=== PATIENT | female | born 1950 | race Caucasian/White ===

== ENCOUNTER 2018-04-02 13:51 | Outpatient (CLI) | payer MEDICARE, OTHER, SELFPAY ==
--- NOTE | 2018-04-02 13:58 | MERGE_ITS ---
*[facility]* *[facility]* [address] [place] [address] Date of study: 04/02/2018 Transthoracic Echocardiography M-mode, complete 2D, complete spectral Doppler, and color Doppler *STUDY CONCLUSIONS* Summary: 1. Left ventricle: The cavity size was normal. Wall thickness was normal. Systolic function was normal. The estimated ejection fraction was 55-60%. Wall motion was normal; there were no regional wall motion abnormalities. 2. Mitral valve: Moderate diffuse thickening of the anterior leaflet and posterior leaflet, consistent with myxomatous proliferation. Mild prolapse, involving the anterior leaflet. Mild systolic bowing without prolapse, involving the posterior leaflet. There was moderate regurgitation directed eccentrically and posteriorly. 3. Right ventricle: The cavity size was normal. Wall thickness was normal. Systolic function was normal. 4. Pulmonary arteries: Pulmonary systolic pressure was mildly increased. PA peak pressure: 36mm Hg (S). 5. Pericardium, extracardiac: A small pericardial effusion was identified along the right ventricular free wall. There was no evidence of hemodynamic compromise. *PATIENT PRESENTATION* Height: 165.1cm ((65in) ) S/D Pressure: 105 / 62 Weight: 53.6kg ((117.9lb) ) BSA: 1.56m^2 Test start time: 02:10 PM. Test stop time: 03:00 PM. ORDERING Anna Walter REFERRING Anna Walter PERFORMING Unknown PERFORMING [facility]GNOS REPORT DEVELOPER RT Radha PaulR)(SANDRA)LINDA *PROCEDURE DATA* Procedure information: The patient was identified by two identifiers. This study was interpreted by [facility]. Pertinent images and digital data are archived for permanent storage and are available for subsequent review. No prior study was available for comparison. Study status: Routine. Transthoracic echocardiography. M-mode, complete 2D, complete spectral Doppler, and color Doppler. A Transthoracic Echocardiogram was performed. Scanning was performed from the parasternal, apical, subcostal, and suprasternal notch acoustic windows. Images were obtained using an [id number] cardiac ultrasound machine. Image quality was adequate. Study completion: The patient tolerated the procedure well. History: PMH: Syncope and collapse *CARDIAC ANATOMY* Left ventricle: The cavity size was normal. Wall thickness was normal. Systolic function was normal. The estimated ejection fraction was 55-60%. Wall motion was normal; there were no regional wall motion abnormalities. Aortic valve: Trileaflet; normal thickness leaflets. Mobility was not restricted. Doppler: Transvalvular velocity was within the normal range. There was no stenosis. There was trivial regurgitation. VTI ratio of LVOT to aortic valve: 0.74. Valve area (VTI): 2.4cm^2. Indexed valve area (VTI): 1.6cm^2/m^2. Peak velocity ratio of LVOT to aortic valve: 0.7. Valve area (Vmax): 2.3cm^2. Indexed valve area (Vmax): 1.5cm^2/m^2. Mean velocity ratio of LVOT to aortic valve: 0.79. Valve area (Vmean): 2.6cm^2. Indexed valve area (Vmean): 1.7cm^2/m^2. Mean gradient (S): 2.7mm Hg. Peak gradient (S): 5.6mm Hg. Aorta: Aortic root: The aortic root was normal in size. Mitral valve: Moderate diffuse thickening of the anterior leaflet and posterior leaflet, consistent with myxomatous proliferation. Mobility was not restricted. Mild prolapse, involving the anterior leaflet. Mild systolic bowing without prolapse, involving the posterior leaflet. Doppler: Transvalvular velocity was within the normal range. There was no evidence for stenosis. There was moderate regurgitation directed eccentrically and posteriorly. Valve area by pressure half-time: 2.4cm^2. Indexed valve area by pressure half-time: 1.6cm^2/m^2. Left atrium: The atrium was at the upper limits of normal in size. Right ventricle: The cavity size was normal. Wall thickness was normal. Systolic function was normal. Pulmonic valve: Poorly visualized. Doppler: Transvalvular velocity was within the normal range. There was no evidence for stenosis. There was trivial regurgitation. Peak gradient (S): 3.6mm Hg. Tricuspid valve: Structurally normal valve. Doppler: Transvalvular velocity was within the normal range. There was no evidence for stenosis. There was trivial regurgitation. Pulmonary artery: Poorly visualized. Pulmonary systolic pressure was mildly increased. Right atrium: The atrium was normal in size. Pericardium: A small pericardial effusion was identified along the right ventricular free wall. There was no evidence of hemodynamic compromise. Systemic veins: Inferior vena cava: Well visualized. The vessel was patent and normal in size. The respirophasic diameter changes were in the normal range (greater than or equal to 50%), consistent with normal central venous pressure. Baseline ECG: Normal sinus rhythm. Measurements Left ventricle Value Reference LV ID, ED, PLAX 4.6 cm 3.5 - 6.0 LV ID, ES, PLAX 3.2 cm 2.1 - 4.0 LV PW thickness, ED, PLAX 1.1 cm LV end-diastolic volume, 1-p A2C 99 ml LV ejection fraction, 1-p A2C 57 % LV end-diastolic volume, 1-p A4C 71 ml LV ejection fraction, 1-p A4C 58 % LV e', lateral 0.088 m/sec LV E/e', lateral 7 LV e', medial 0.064 m/sec LV E/e', medial 10 LV e', average 0.076 m/sec LV E/e', average 8 Ventricular septum Value Reference IVS thickness, ED, PLAX 1.0 cm LVOT Value Reference LVOT ID, A-P 2.0 cm LVOT area 3.3 cm^2 LVOT peak velocity, S 0.83 m/sec LVOT mean velocity, S 0.61 m/sec LVOT VTI, S 17.7 cm LVOT peak gradient, S 2.7 mm Hg LVOT mean gradient, S 1.6 mm Hg Stroke volume (SV), LVOT DP 58 ml Stroke index (SV/bsa), LVOT DP 37 ml/m^2 Aortic valve Value Reference Aortic valve peak velocity, S 1.2 m/sec Aortic valve mean velocity, S 0.77 m/sec Aortic valve VTI, S 24.0 cm Aortic mean gradient, S 2.7 mm Hg Aortic peak gradient, S 5.6 mm Hg VTI ratio, LVOT/AV 0.74 Aortic valve area, VTI 2.4 cm^2 Velocity ratio, peak, LVOT/AV 0.7 Aortic valve area, peak velocity 2.3 cm^2 Velocity ratio, mean, LVOT/AV 0.79 Aortic valve area, mean velocity 2.6 cm^2 Aortic valve area/bsa, mean velocity 1.7 cm^2/m^2 Aorta Value Reference Aortic root ID, ED 2.9 cm Ascending aorta ID, A-P, S 2.7 cm RVOT Value Reference RVOT VTI, S 18.4 cm Left atrium Value Reference LA ID, A-P, ES 3.1 cm LA ID/bsa, A-P 2.0 cm/m^2 <=2.2 LA area, ES, A4C 18.3 cm^2 8.8 - 23.4 LA area, ES, A2C 18 cm^2 LA volume/bsa, ES, 1-p A4C 36 ml/m^2 LA volume, ES, 2-p 48 ml LA volume/bsa, ES, 2-p 31 ml/m^2 LA/aortic root ratio 1.09 Mitral valve Value Reference Mitral E-wave peak velocity 0.62 m/sec Mitral A-wave peak velocity 0.6 m/sec Mitral deceleration time (H) 311 ms 150 - 230 Mitral pressure half-time 90 ms Mitral E/A ratio, peak 1.02 Mitral valve area, PHT, DP 2.4 cm^2 Mitral peak LV-LA gradient, S 132 mm Hg Mitral maximal regurg velocity, PISA 5.74 m/sec Mitral regurg VTI, PISA 210.9 cm Pulmonary veins Value Reference Pulmonary vein peak velocity, S 0.52 m/sec Pulmonary vein peak velocity, D 0.49 m/sec Pulmonary vein velocity ratio, peak, 1.06 S/D Pulmonary vein A-wave reversal peak 0.38 m/sec velocity Pulmonary vein A-wave reversal 135 ms duration Pulmonary arteries Value Reference PA pressure, S, DP (H) 36 mm Hg <=30 Tricuspid valve Value Reference Tricuspid regurg peak velocity 2.7 m/sec Tricuspid peak RV-RA gradient 29.1 mm Hg Right atrium Value Reference RA area, ES, A4C 10.6 cm^2 8.3 - 19.5 Systemic veins Value Reference Estimated CVP 10 mm Hg Right ventricle Value Reference RV pressure, S, DP (H) 39 mm Hg <=30 Pulmonic valve Value Reference Pulmonic peak gradient, S 3.6 mm Hg Legend: (L) and (H) phillip values outside specified reference range. I have personally reviewed the images and have reviewed and edited the reported findings. Electronically signed by Agusto Brenner 04/02/2018 18:14
== END 2018-04-02 14:11 ==
PROVIDERS: PCP Family Medicine; Visit Provider Family Medicine
DX: I34.0 Nonrheumatic mitral (valve) insufficiency (principal); I31.3 Pericardial effusion (noninflammatory); I51.7 Cardiomegaly
CPT/HCPCS: 93306

== ENCOUNTER 2018-04-14 01:11 | Outpatient (CLI) | payer MEDICARE, OTHER, SELFPAY ==
--- NOTE | 2018-04-28 11:10 | HOLTER_ITS ---
HOLTER MONITOR REPORT DATE OF DICTATION April 28, 2018 INTERPRETATION Baseline rhythm sinus. Rare single PAC. No SVT or atrial fibrillation. Frequent single PVC, 1982 total, 0.8% total beat. One couplet. No VT. No bradycardia. SYMPTOMS No symptoms. Average heart rate 79 beats per minute, range 57-136 beats per minute. Stevo Hobson M.D. Margy T - 04/28/2018
== END 2018-04-14 01:31 ==
PROVIDERS: PCP Family Medicine; Visit Provider Family Medicine
DX: I49.1 Atrial premature depolarization (principal); I49.3 Ventricular premature depolarization
CPT/HCPCS: 93225

== ENCOUNTER 2018-04-18 12:06 | Outpatient (CLI) | payer MEDICARE, OTHER, SELFPAY ==
--- NOTE | 2018-04-21 16:50 | HOLTER_ITS ---
DATE OF READING: April 21, 2018 48-hour study Baseline rhythm sinus. Rare single PAC. No atrial fibrillation or SVT. Occasional single PVC, 1982 total, 0.8% total beat. One couplet. No VT. Nocturnal heart rate as low as 55-60 bpm. No symptoms. Average heart rate 79 bpm.
== END 2018-04-18 12:26 ==
PROVIDERS: PCP Family Medicine; Visit Provider Family Medicine
DX: I49.1 Atrial premature depolarization (principal); I49.3 Ventricular premature depolarization
CPT/HCPCS: 93226

== ENCOUNTER 2018-04-21 10:44 | Outpatient (CLI) | payer MEDICARE, OTHER, SELFPAY | END 2018-04-21 11:04 | PROVIDERS: PCP Family Medicine; Visit Provider Internal Medicine Interventional Cardiology | DX: I49.1 Atrial premature depolarization (principal); I49.3 Ventricular premature depolarization | CPT/HCPCS: 93227 ==

== ENCOUNTER 2019-01-05 10:16 | Outpatient (REF) | payer MEDICARE, OTHER, SELFPAY ==
--- NOTE | 2019-01-05 09:30 | PAPFT_PTH ---
PATIENT: Dede Gonzalez LOC: [facility] U#:[id number] AGE/SX: 68/F ROOM: RE01/05/[address]: Anna Walter MD, DC : 1950 BED: DIS: 01/05/2019 SPEC #: [id number] RECD: 01/05/19 13:12 STATUS: RADHA REQ #: [id number] MARTHA: 01/05/19 09:[address]: Anna Walter DEPT: [facility] Cytology RECD BY: Ashlyn Wong Tissues: 1 - CX/ENDOCX FOR PAP SMEARS Procedures: PAP THIN PREP/UVM Screening HPV DNA PROBE Comments: [id number]
== END 2019-01-05 10:36 ==
LOC: LBN 10:16
PROVIDERS: PCP Family Medicine; Visit Provider Family Medicine
DX: Z12.4 Encounter for screening for malignant neoplasm of cervix (principal); Z11.51 Encounter for screening for human papillomavirus (HPV)
CPT/HCPCS: 88142; 87624

== ENCOUNTER 2019-03-26 02:01 | Outpatient (CLI) | payer MEDICARE, OTHER, SELFPAY ==
--- NOTE | 2019-03-26 15:24 | DI.DEXA_ITS ---
EXAM: XR DEXA BONE DENSITY W/WO PATRIA INDICATION: osteoporosis M81.0. COMPARISON: No exams were available for comparison TECHNIQUE: 2D digital imaging was performed. DEXA scan was performed according to the usual protoco l. FINDINGS: Lateral vertebral scanogram is not of good technical quality, but there is a question of mild anterio r compressions of a couple midthoracic vertebral bodies. Left forearm scanning shows T-score of -3.4 . Left hip scanning shows T-score of -1.8 with left femoral neck T-score of -2.2. Previous examinat ion of February 2009 showed left hip T-score of -1.3. Lumbar spine scanning shows T-score of -3.7, previous examination of February 2009 showed lumbar T-s core of -3.1. IMPRESSION: Findings consistent with osteoporosis according to the WHO criteria. Probable mild anterior compressi on fractures of mid thoracic vertebrae.
== END 2019-03-26 02:21 ==
PROVIDERS: PCP Family Medicine; Visit Provider Family Medicine
DX: M81.0 Age-related osteoporosis without current pathological fracture (principal)
CPT/HCPCS: 77080

== ENCOUNTER 2019-05-26 12:42 | Outpatient (CLI) | payer MEDICARE, OTHER, SELFPAY ==
[2019-05-26 13:13] LABS: HCT 39.6 % (36.0-46.0); HGB 13.1 g/dL (12.0-15.5); Mean Corp. HGB Concentration 33.1 g/dL (32.0-36.0); Mean Corpuscular Hemoglobin 29.8 pg (27.0-33.0); Mean Corpuscular Volume 90.2 fL (80-95); Mean Platelet Volume 10.2 fL (8.0-11.0); Platelet Count 227 x1000/uL (130-400); RBC 4.39 m/cumm (4.00-5.20); RBC Distribution Width 12.8 % (11.7-14.6); White Blood Cell Count 5.84 k/cumm (4.4-10.8)
[2019-05-26 13:55] LABS: ALT 30 U/L (14-59); AST 29 U/L (15-37); Albumin 3.9 g/dL (3.4-5.0); Alkaline Phosphatase 125 U/L (46-116); Anion Gap 11.6 mmol/L (3-11); BUN 16 mg/dL (7-18); Bilirubin, Total 0.4 mg/dL (0.2-1.0); CO2 28.4 mmol/L (21.0-32.0); CREATININE 0.71 mg/dL (0.55-1.02); Calcium 9.1 mg/dL (8.5-10.1); Chloride 103 mmol/L (98-107); Glucose 88 mg/dL (74-106); Potassium 3.9 mmol/L (3.5-5.1); Sodium 143 mmol/L (136-145); TSH (W/Ref FT4) 1.26 uIU/mL (0.36-3.74); Total Protein 6.7 g/dL (6.4-8.2)
== END 2019-05-26 13:02 ==
PROVIDERS: PCP Family Medicine; Visit Provider Family Medicine
DX: R63.4 Abnormal weight loss (principal); R42 Dizziness and giddiness; N30.20 Other chronic cystitis without hematuria
CPT/HCPCS: 36415; 80053; 85027; 84443

== ENCOUNTER → 2022-06-06 02:04 | Outpatient (CLI) | payer MEDICARE, OTHER, SELFPAY ==
--- NOTE | 2022-06-06 | DI.RAD_ITS ---
Exam(s) XR PELVIS AP EXAM: XR PELVIS AP CLINICAL HISTORY: LT LEG PAIN, LBP, DEGENERATIVE, M54.32, M54.5. TECHNIQUE: 2D digital imaging was performed. COMPARISON: No exams were available for comparison FINDINGS: BONES: No acute fracture is present. No bony destructive lesion is seen. JOINTS: No dislocation present. There are mild degenerative changes of the hips bilaterally with prom inence of the acetabuli. The sacroiliac joints and symphysis pubis are unremarkable. SOFT TISSUE: Normal. IMPRESSION: Mild degenerative changes of the hips bilaterally. DATA REPOSITORY: RADIATION DOSE DELIVERED:
--- NOTE | 2022-06-06 13:51 | DI.RAD_ITS ---
Exam(s) XR LUMBAR SPINE AP, LAT EXAM: XR LUMBAR SPINE AP, LAT CLINICAL HISTORY: LT LEG PAIN, LBP, DEGENERATIVE, M54.32, M54.5. TECHNIQUE: 2D digital imaging was performed of the lumbar spine. Three images were obtained. AP, l ateral, and L5-S1 spot views were obtained. COMPARISON: No exams were available for comparison FINDINGS: BONES: No fracture or destructive lesion. There are endplate osteophytes at multiple levels of the tyshawn mbar spine. No facet hypertrophy identified. DISKS: There is mild disc space narrowing at L4-5 and L5-S1. ALIGNMENT: Lumbar spinal alignment is within normal limits. There does appear to be a grade 1 spondyl olisthesis of L5 on S1. SOFT TISSUE: Normal. IMPRESSION: Mild degenerative changes in the lumbar spine. DATA REPOSITORY: RADIATION DOSE DELIVERED:
== END ==
PROVIDERS: PCP Family Medicine; Visit Provider Chiropractor Nutrition
DX: M47.816 Spondylosis without myelopathy or radiculopathy, lumbar region (principal); M16.0 Bilateral primary osteoarthritis of hip
CPT/HCPCS: 72100; 72170

== ENCOUNTER 2023-05-27 04:00 | Outpatient (CLI) | payer MEDICARE, OTHER, SELFPAY ==
[2023-05-27 12:27] LABS: HCT 36.5 % (36.0-46.0); MCH 29.6 pg (27.0-33.0); MCHC 32.9 % (32.0-36.0); MCV 90 fL (80-95); MPV 9.6 fL (8.0-11.0); Platelet Count 241 10^3/uL (130-400); RBC 4.05 10^6/uL (3.93-5.22); RDW 12.6 % (11.7-14.6); RDW-SD 41.5 fL; WBC 5.19 10^3/uL (4.4-10.8)
[2023-05-27 12:51] LABS: Bilirubin Negative (Negative); Blood Negative (Negative); Clarity Clear (Clear); Glucose Negative (Negative); Ketones Negative (Negative); Leukocyte Esterase Negative (Negative); Nitrite Negative (Negative); Urobilinogen 0.2 mg/dL (Up to 0.2); pH 6.5 (5-8)
[2023-05-27 13:02] LABS: ALT 44 U/L (14-59); AST 32 U/L (15-37); Albumin 3.5 g/dL (3.4-5.0); Alkaline Phosphatase 92 U/L (46-116); Anion Gap 4.9 mmol/L (3-11); BUN 12 mg/dL (7-18); Bilirubin, Total 0.4 mg/dL (0.2-1.0); CO2 31.1 mmol/L (21.0-32.0); CREATININE 0.7 mg/dL (0.55-1.02); Calcium 9.1 mg/dL (8.5-10.1); Chloride 104 mmol/L (98-107); Estimated GFR 91.83 (mL/min/1.73m2); Glucose 97 mg/dL (74-106); Potassium 3.8 mmol/L (3.5-5.1); Sodium 140 mmol/L (136-145); TSH (W/Ref FT4) 1.89 uIU/mL (0.36-3.74); Total Protein 6.8 g/dL (6.4-8.2)
== END 2023-05-27 04:01 | disposition home or self-care (01) ==
LOC: LBO 04:00
PROVIDERS: PCP Family Medicine; Visit Provider Family Medicine
DX: G43.909 Migraine, unspecified, not intractable, without status migrainosus (principal); I10 Essential (primary) hypertension; E03.9 Hypothyroidism, unspecified
CPT/HCPCS: 36415; 80053; 85027; 81003; 84443

== ENCOUNTER 2023-08-06 18:08 | Outpatient (REF) | payer MEDICARE, OTHER, SELFPAY ==
[2023-08-06 20:41] LABS: Bilirubin Negative (Negative); Blood Negative (Negative); Clarity Clear (Clear); Glucose Negative (Negative); Ketones Negative (Negative); Leukocyte Esterase Negative (Negative); Nitrite Negative (Negative); Urobilinogen 0.2 mg/dL (Up to 0.2); pH 5.5 (5-8)
== END 2023-08-06 18:09 | disposition home or self-care (01) ==
LOC: LBN 18:08
PROVIDERS: PCP Family Medicine; Visit Provider Family Medicine
DX: R30.0 Dysuria (principal)
CPT/HCPCS: 81003

== ENCOUNTER 2023-09-26 15:28 | Outpatient (CLI) | payer MEDICARE, OTHER, SELFPAY ==
[2023-09-26 14:44] LABS: Abs Immature Grans 0.01 10^3/uL (0.0-0.06); Absolute Basophil Count 0.04 10^3/uL (0.0-0.2); Absolute Eosinophil Count 0.13 10^3/uL (0.0-0.7); Absolute Lymphocyte Count 1.12 10^3/uL (1.2-3.4); Absolute Monocyte Count 0.37 10^3/uL (0.1-0.8); Absolute Neutrophil Count 2.96 10^3/uL (1.2-6.7); Basophils % 0.9; ESR 1 mm/hr (0-30); Eosinophils % 2.8; HCT 39.9 % (36.0-46.0); HGB 13.1 g/dL (11.2-15.7); Immature Grans % 0.2; Lymphocytes % 24.2; MCH 30.1 pg (27.0-33.0); MCHC 32.8 % (32.0-36.0); MCV 92 fL (80-95); MPV 9.8 fL (8.0-11.0); Neutrophils % 63.9; Platelet Count 240 10^3/uL (130-400); RBC 4.35 10^6/uL (3.93-5.22); RDW 12.2 % (11.7-14.6); RDW-SD 41.1 fL; WBC 4.63 10^3/uL (4.4-10.8)
[2023-09-26 15:32] LABS: Vitamin D 25 Total 51.4 ng/mL (30-100)
[2023-09-26 15:49] LABS: ALT 36 U/L (14-59); AST 26 U/L (15-37); Albumin 3.9 g/dL (3.4-5.0); Alkaline Phosphatase 89 U/L (46-116); Anion Gap 7.2 mmol/L (3-11); BUN 12 mg/dL (7-18); Bilirubin, Total 0.4 mg/dL (0.2-1.0); CO2 30.8 mmol/L (21.0-32.0); CREATININE 0.7 mg/dL (0.55-1.02); Calcium 9.3 mg/dL (8.5-10.1); Chloride 103 mmol/L (98-107); Estimated GFR 91.83 (mL/min/1.73m2); Glucose 100 mg/dL (74-106); Potassium 4.3 mmol/L (3.5-5.1); Sodium 141 mmol/L (136-145); TSH (W/Ref FT4) 1.88 uIU/mL (0.36-3.74); Total Protein 7.3 g/dL (6.4-8.2); Vitamin B12 444 pg/mL (193-986)
== END 2023-09-26 15:29 | disposition home or self-care (01) ==
LOC: LBO 15:28
PROVIDERS: PCP Family Medicine; Visit Provider Family Medicine
DX: E03.9 Hypothyroidism, unspecified (principal); R42 Dizziness and giddiness; E55.9 Vitamin D deficiency, unspecified; I10 Essential (primary) hypertension
CPT/HCPCS: 36415; 80053; 82306; 85652; 82607; 84443; 85025

== ENCOUNTER → 2023-10-17 03:58 | Outpatient (CLI) | payer MEDICARE, OTHER, SELFPAY ==
--- NOTE | 2023-10-17 08:00 | DI.MRI_ITS ---
Exam(s) MR BRAIN WO EXAM: MR BRAIN WO CLINICAL HISTORY: G43.909 worsening migraines, R42 dizziness AND GIDDINESS TECHNIQUE: Multiplanar multisequence MRI of the brain was performed. COMPARISON: CT HEAD WITH/WITHOUT CONTRAST from 10/02/2010 FINDINGS: VENTRICLES AND EXTRA AXIAL SPACES: Normal in size and morphology for the patient's age. MIDLINE SHIFT: None. CEREBRAL PARENCHYMA: No focus of restricted diffusion to suggest acute infarct. No space-occupying le zakiya identified. There are areas of hyperintense signal seen in the white matter on the T2 and FLAIR images consistent with chronic microvascular ischemic disease. HEMORRHAGE: None. BRAINSTEM/CEREBELLUM: Normal. CALVARIUM: Normal. VISUALIZED PARANASAL SINUSES/MASTOIDS:Clear. [place]: Normal flow void. PITUITARY GLAND: Unremarkable. No evidence of a sellar or suprasellar mass is seen. OTHER FINDINGS: None. IMPRESSION: 1. Age-appropriate cerebral atrophy and chronic microvascular ischemic disease. 2. No evidence of an acute infarct. DATA REPOSITORY:
--- NOTE | 2023-10-17 13:25 | DI.US_ITS ---
APPROVED REPORT EXAM: Comprehensive 2D, Doppler, and color-flow Echocardiogram Patient Location: Out-Patient Paint Department Supervisor: Myranda Oshea RDCS (AE) Indications: Dizziness,Non rheumatic mitral valve insufficiency Other Information Study Quality: Adequate Conclusion Normal left ventricular wall thickness and chamber size. Ejection fraction is 55 to 60%. Wall motio n is normal Normal right ventricular size and function Both atria are normal in size Trileaflet aortic valve with trace regurgitation Mildly thickened mitral leaflets with mild systolic prolapse. There is mild to moderate eccentric mi tral regurgitation Mild tricuspid regurgitation. Estimated right ventricular systolic pressure is 20 mmHg Wall motion Left Ventricle The left ventricle is normal size. The left ventricular systolic function is normal. The left ventric ular ejection fraction is within the normal range. There is normal left ventricular wall thickness. T here is normal LV segmental wall motion. There is no ventricular septal defect visualized. LVEF is 57 %. Right Ventricle The right ventricle is normal size. The right ventricular systolic function is normal. Atria Left atrium is mildly dilated. Right atrium is mildly dilated. The interatrial septum is intact with no evidence for an atrial septal defect. Aortic Valve The aortic valve is normal in structure. Aortic valve is trileaflet. There is no aortic valvular sten osis. Trace aortic regurgitation. Mitral Valve Mild to moderate eccentric mitral regurgitation. Mild mitral valve prolapse. Tricuspid Valve The tricuspid valve is normal in structure. There is no tricuspid valve stenosis. Mild tricuspid regu rgitation. The RVSP is 20.3 mmHg. Pulmonic Valve The pulmonary valve is normal in structure. There is no pulmonic valvular stenosis. Mild pulmonic reg urgitation. Great Vessels The aortic root is normal in size. The ascending aorta is normal in size. Aortic arch is normal in ca liber. IVC is normal in size and collapses >50% with inspiration. Pericardium There is no pericardial effusion. 2D Dimensions IVSD d PLAX 0.94 cm F: 0.6-1.0 Ao Root d 2.92 cm F: 2.7 - 3.3 LVPW d PLAX 0.86 cm F: 0.6 - 1.0 Ao Asc Diam d 2.87 cm F: 2.3 - 3.1 LVID d PLAX 4.66 cm F: 3.8 - 5.2 LVDs 3.27 cm F: 2.2 - 3.5 LV EF Teichholz 57.1 % FS 29.90 % LV EDV (Teich) 100.5 mL LV ESV (Teich) 43.1 mL M-Mode TAPSE 1.58 cm (M/F) >1.7 Auto EF LV EDV A4C 117.9 mL LV EDV A2C 129.3 mL LV EDV BP 125.4 mL LV ESV A4C 53.5 mL LV ESV A2C 57.7 mL LV ESV BP 55.6 mL LVEF(%) A4C 54.6 % LVEF(%) A2C 55.4 % LVEF(%) BP 55.7 % LV SV A4C 64.4 ml LV SV A2C 71.6 ml LV SV BP 69.8 ml LV CO A4C 3.9 L/min LV CO A2C 4.0 L/min LV CO BP 3.9 L/min HR A4C 60.82 BPM HR A2C 55.39 BPM LV EDV Index (BP) LA Volume LA Length A4C 5.5 cm LA Length A2C 5.3 cm LA Area A4C s 18.08 cm2 LA Area A2C s 21.33 cm2 LA Vol A4C A-L 50.76 mL LA Vol A2C A-L 73.50 mL LA Vol Biplane A-L 62.3 mL LA Vol/BSA A4C A-L LA Vol/BSA A2C A-L LA Vol/BSA BP A-L 39.2 mL/m2 LA Vol A4C MOD 46.2 mL LA Vol A2C MOD 69.7 mL LA Vol BP MOD 57.7 mL RA Volume RA Area A4C 14.1 cm2 RA ESV A4C (A-L) 39.3mL RA Vol/BSA A4C A-L RA Length A4C 4.3 cm RA ESV A4C (MOD) 37.0mL LV Diastology MV E' medial 0.067 (>0.07 m/s) MV E Vmax 0.59 (0.4-1.3 m/s) MV E/E' MED 8.85 (<14) MV A Vmax 0.90 (0.4-1.3 m/s) MV E' lateral 0.067 (>0.1 m/s) E/A Ratio 0.7 MV E/E' LAT 8.85 (<14) MV E' Average 0.067 m/s MV E/E'(average) 8.85 Aortic Valve AoV Vmax 0.93 m/s LVOT Vmax 0.78 m/s AoV Peak Grad 23.4 mmHg LVOT Peak Grad 2.4 mmHg AoV Area (Vmax) 2.59 cm2 LVOT VTI 0.206 m AoV VTI 0.231 m LVOT Mean Grad 1.4 mmHg AoV Mean Paul. 0.67 m/s LVOT SV 63.94 mL AoV Mean Grad 2.0 mmHg LVOT Diam s 1.95 cm AoV Area (VTI) 2.77 cm2 AV Regurg Peak Gr. 43.30 mmHg Velocity Ratio 0.84 AR Decel [place] 1.0m/sec2 AR DT 3323 msec AR PHT 964 msec AR Vmax 3.29 m/s Mitral Valve MV DT 362 (160-240 msec) MV Vmax TIPS 0.85 m/s MV Mean Grad 1.1 (<2mmHg) MV VTI 0.287 m Pulmonary Valve PV Vmax 0.71 (0.5-1.5 m/s) RVOT Vmax 0.79 m/s PV Peak Grad 2.0 mmHg RVOT Peak Gr. 2.5 mmHg PV Mean Paul 0.50 m/s RVOT VTI 0.161 m PV Mean Grad 1.1 mmHg RVOT Mean Gr. 1.4 mmHg Tricuspid Valve RA Pressure 3.00 mmHg TR Vmax 2.08 m/s TV S' 0.11 m/s TR Peak Grad 17.2 mmHg RVSP (TR) 20.3 mmHg
== END ==
PROVIDERS: PCP Family Medicine; Visit Provider Family Medicine
DX: R42 Dizziness and giddiness; I34.0 Nonrheumatic mitral (valve) insufficiency
CPT/HCPCS: 93227; 93306; 70551; 93225

== ENCOUNTER 2023-10-17 14:25 | Outpatient (RCR) | payer MEDICARE, OTHER, SELFPAY ==
--- NOTE | 2023-10-17 14:30 | HOLTER_ITS ---
APPROVED REPORT Conclusion This is a 48-hour Holter monitor Predominant rhythm is sinus with an average heart rate of 83. Minimum was 59, maximum 140 There were occasional ventricular ectopic beats. There were rare ventricular couplets. There was on e 4 beat run of nonsustained ventricular tachycardia There were very rare atrial premature beats There was no atrial fibrillation, no high-grade AV block, no pauses greater than 3 seconds
== END 2023-10-22 23:59 | disposition home or self-care (01) ==
LOC: CARDOPNVT 14:25
PROVIDERS: PCP Family Medicine; Visit Provider Family Medicine
DX: R42 Dizziness and giddiness (principal)
CPT/HCPCS: 93227; 93225

== ENCOUNTER 2024-12-28 13:18 | Outpatient (REF) | payer MEDICARE, OTHER, SELFPAY | END 2024-12-28 13:19 | disposition home or self-care (01) | LOC: LBN 13:18 | PROVIDERS: PCP Family Medicine; Visit Provider Family Medicine | DX: N76.0 Acute vaginitis (principal) | CPT/HCPCS: 87480; 87510; 87660 ==

== ENCOUNTER 2025-05-10 13:49 | Outpatient (REF) | payer MEDICARE, OTHER, SELFPAY ==
[2025-05-10 14:49] LABS: Glucose Negative (Negative)
== END 2025-05-10 13:50 | disposition home or self-care (01) ==
LOC: LBN 13:49
PROVIDERS: PCP Family Medicine; Visit Provider Family Medicine
DX: R30.0 Dysuria (principal)
CPT/HCPCS: 81003